=== PATIENT | male | born 1995 | race Caucasian/White ===

== ENCOUNTER 2017-07-31 18:11 | Emergency (ER) | payer SELFPAY ==
[2017-07-31 18:16] VITALS: BP 142/80; PULSE 85; TEMP 99.1; BMI 27.8
[2017-07-31] MEDS ORDERED: TRIAMCINOLONE ACET 40MG/1ML VIAL IM ONE (19:53)
[2017-07-31] MEDS ORDERED: diphenhydrAMINE HCL 25 MG CAPSULE (FP) PO ONE ×2 (19:54→19:57)
[2017-07-31] MEDS ORDERED: TRIAMCINOLONE ACET 40MG/1ML VIAL ONE (19:58)
--- NOTE | 2017-07-31 20:01 | PDOC ---
History of Present Illness - General Chief Complaint: Rash Stated Complaint: INFECTION Time Seen by Provider: 07/31/17 19:26 History Source: Patient Exam Limitations: No Limitations - History of Present Illness Initial Comments: 07/31/17 19:58 My chief complaint: Itchy rash and sore throat History of present illness: Patient is a 22-year-old male with no significant medical history here today with a pruritic vesicular rash to his dorsal hands, arms, chest, few areas on face and posterior distal leg getting worse over the last few days. Patient had been doing gardening over the weekend. Patient also complaining of a sore throat since yesterday. Patient states that he feels slightly achy. Patient has not taken anything for itchiness or applied any creams to his rash. Patient denies any difficulty breathing or swallowing. She denies any recent travel or sick contacts. Timing/Duration: getting worse Severity: moderate Associated Symptoms: reports: rash, other (sore throat ) Past History - Past Medical History Allergies/Adverse Reactions: Allergies Allergy/AdvReac Type Severity Reaction Status Date / Time No Known Allergies Allergy Verified 07/31/17 18:12 Home Medications: Ambulatory Orders NK [No Known Home Medication] 07/31/17 Other medical history: NONE - Suicide/Smoking/Psychosocial Hx Smoking History: Never smoked Hx Alcohol Use: No Drug/Substance Use Hx: No Review of Systems - Review of Systems Able to Perform ROS?: Yes Constitutional: No: Symptoms Reported HEENTM: Yes: Throat Pain Respiratory: No: Symptoms reported Cardiac (ROS): No: Symptoms Reported ABD/GI: No: Symptoms Reported : No: Symptoms Reported Integumentary: Yes: Rash (vesicular rash linear b/l hand, b/l arms, chest, few area on face, rt. posterior lower leg') Neurological: No: Symptoms reported *Physical Exam - Vital Signs Last Vital Signs Temp Pulse Resp BP Pulse Ox 99.1 F 85 18 142/80 100 07/31/17 18:13 07/31/17 18:13 07/31/17 18:13 07/31/17 18:13 07/31/17 18:13 - Physical Exam General Appearance: Yes: Appropriately Dressed HEENT: positive: TMs Normal, Pharyngeal Erythema, Tonsillar Exudate (rt. ), Tonsillar Erythema (with no uvular deviation) Neck: negative: Lymphadenopathy (R), Lymphadenopathy (L) Respiratory/Chest: positive: Lungs Clear, Normal Breath Sounds. negative: Chest Tender, Respiratory Distress Cardiovascular: positive: Regular Rhythm, Regular Rate, S1, S2 Integumentary: positive: Rash (vesicular rash linear b/l hand, b/l arms, chest, few area on face, rt. posterior lower leg) Neurologic: positive: Alert, Normal Response, Responsive Medical Decision Making - Medical Decision Making 07/31/17 20:01 Patient is a 22-year-old male with no significant medical history here today with a pruritic vesicular rash to his dorsal hands, arms, chest, few areas on face and posterior distal leg getting worse over the last few days. Patient had been doing gardening over the weekend. Patient also complaining of a sore throat since yesterday. Patient states that he feels slightly achy. Patient has not taken anything for itchiness or applied any creams to his rash. Patient denies any difficulty breathing or swallowing. She denies any recent travel or sick contacts. Contact dermatitis Pharyngitis/tonsillitis rule out strep PLAN: throat C & S rapid negative kenalog 40 mg IM now benadryl 25 mg po now than every 6 hrs prn itchiness follow up with bond manager 07/31/17 20:40 07/31/17 20:49 07/31/17 20:49 *DC/Admit/Observation/Transfer Diagnosis at time of Disposition: Contact dermatitis Qualifiers: Contact dermatitis type: allergic Contact dermatitis trigger: non-food plants Qualified Code(s): L23.7 - Allergic contact dermatitis due to plants, except food - Discharge Dispostion Disposition: HOME Condition at time of disposition: Stable - Referrals Referrals: [facility] [Non Staff, Medical] - - Patient Instructions Additional Instructions: You may purchase calamine lotion and apply to rash Follow up with bond manager if rash persists drink a lot a fluids and rest Return to emergency room if symptoms worsen Patient voiced understanding of discharge instructions and all questions were answered Usted puede comprar locin de calamina y aplicar a la erupcin Seguimiento con dermatlogo si la erupcin persiste beber mucho lquidos y descansar Regreso a la stanton de emergencias si los sntomas empeoran Comprensin del paciente sobre las instrucciones de christi y todas las preguntas fueron contestad
== END 2017-07-31 20:54 | disposition home or self-care (01) ==
LOC: JERFT 18:11
PROC: 3E0233Z Introduction of Anti-inflammatory into Muscle, Percutaneous Approach (ICD-10-PCS; principal; 2017-07-31)
DX: L23.7 Allergic contact dermatitis due to plants, except food (principal)
CPT/HCPCS: 87070; 87430; 99281-25